=== PATIENT | female | born 1955 | race Hispanic/Latino ===

== ENCOUNTER 2018-04-25 17:17 | Emergency (ER) | payer SELFPAY ==
[2018-04-25] MEDS ORDERED: diphenhydrAMINE 12.5 MG/5 ML UDCUP ONE (17:52)
[2018-04-25] MEDS ORDERED: Prochlorperazine 10 MG/2 ML VIAL ONE (17:52)
[2018-04-25] MEDS ORDERED: diphenhydrAMINE 50 MG/ML VIAL ONE (17:53)
[2018-04-25 18:05] LABS: #Basophils 0.1 thou/uL (0.0-0.2); #Lymphocytes 1.1 thou/uL (1.20-3.40); #Monocytes 0.3 thou/uL (0.11-0.59); #Neutrophils 5.9 thou/uL (1.40-6.50); %Basophils 1.9 % (0.0-1.0); %Eosinophils 0.1 % (0.0-10.0); %Monocytes 3.9 % (0.0-10.0); Hemoglobin 12.3 g/dL (12.0-16.0); Mean Corpuscular HGB CONC 36.5 g/dL (32.0-36.0); Mean Platelet Volume 9.3 fL (7.4-10.4); Platelet Count 108 thou/uL (130-400); Red Blood Cell (RBC) Count 3.97 mill/uL (4.20-5.40); White Blood Cell (WBC) Count 7.4 thou/uL (4.8-10.8)
[2018-04-25 18:07] LABS: MDiff Complete? YES; Manual Diff?? YES; PLT Morphology Comment Appears Decreased
[2018-04-25 18:12] LABS: ALT (SGPT) 15 U/L (8-55); AST (SGOT) 14 U/L (5-34); Albumin 4.4 g/dL (3.4-4.8); Alkaline Phosphatase 58 U/L (40-150); Anion Gap 12 mmol/L (10-20); BUN (Urea Nitrogen) 21 mg/dL (9.8-20.1); Bilirubin, Total 0.4 mg/dL (0.2-1.2); Calc. Creatinine Clearance 0 mL/min (70-130); Carbon Dioxide 25 mmol/L (23-31); Chloride 106 mmol/L (98-107); Estimated GFR-MDRD 54; Globulin 2.6 g/dL (2.4-3.5); Glucose 212 mg/dL (80-115); Potassium 3.9 mmol/L (3.5-5.1); Sodium 139 mmol/L (136-145)
--- NOTE | 2018-04-25 18:20 | RAD ---
PORTABLE CHEST: 04/25/18 AP portable film at 1730 is compared with an 12/24/14 study. The heart is normal in size and the lungs are clear. At most, there may be a little basilar atelectas is. There is no vascular congestion or edema. No pleural effusions are seen. The trachea is midline. IMPRESSION: No acute thoracic finding. POS: HOME
--- NOTE | 2018-04-25 18:31 | CT ---
CT OF THE BRAIN WITHOUT CONTRAST: 04/25/18 There is low density area deep to the left Sylvian fissure that I do not see on a 2015 CT of MRI. A s troke is possible, but the age is indeterminate. There is no bleeding. No mass was seen. The ventricl es are normal in size for age and show no shift. No mass or edema was seen. IMPRESSION: Small low density area deep to the left Sylvian fissure. A stroke of indeterminate age is suspected, particularly since I do not see this on a prior scan. Findings discussed with Dr. Mathews at 1818 on 04/25/18. POS: HOME
== END 2018-04-25 19:10 | disposition short-term general hospital (02) ==
LOC: BURERS 17:17
DX: I63.9 Cerebral infarction, unspecified (principal); E11.9 Type 2 diabetes mellitus without complications; E03.9 Hypothyroidism, unspecified; E78.5 Hyperlipidemia, unspecified; I10 Essential (primary) hypertension; G51.0 Bell's palsy; Z79.899 Other long term (current) drug therapy
CPT/HCPCS: 70450; 71045; 80053; 83605; 84484; 85025; 93005; 94760; 96361; 96374; 96375; J0780; J1200

== ENCOUNTER 2020-01-27 11:20 | Emergency (ER) | payer SELFPAY ==
[2020-01-27] MEDS ORDERED: HYDROcodone/Acetaminophen 5/325 mg Tablet ONE (11:44)
[2020-01-27 11:59] LABS: Hemoglobin 13.3 g/dL (12.0-16.0); Mean Corpuscular HGB CONC 31.3 g/dL (32.0-36.0); Mean Corpuscular Hemoglobin 30.4 pg (27.0-31.0); Mean Platelet Volume 8.5 fL (7.4-10.4); Platelet Count 95 thou/uL (130-400); RBC Distribution Width 11.4 % (11.5-14.5); Red Blood Cell (RBC) Count 4.38 mill/uL (4.20-5.40); White Blood Cell (WBC) Count 5.9 thou/uL (4.8-10.8)
[2020-01-27 12:01] LABS: #Eosinphils 0.2 thou/uL (0.0-0.7); #Lymphocytes 1.5 thou/uL (1.20-3.40); #Monocytes 0.5 thou/uL (0.11-0.59); #Neutrophils 3.7 thou/uL (1.40-6.50); %Basophils 0.5 % (0.0-1.0); %Eosinophils 2.6 % (0.0-10.0); %Lymphocytes 25.4 % (21.0-51.0); %Monocytes 9.1 % (0.0-10.0); %Neutrophils 62.5 % (42.0-75.0)
[2020-01-27 12:02] LABS: INR-International Normal Ratio 0.9; Prothrombin Time 12.4 sec (12.0-14.7)
[2020-01-27 12:04] LABS: D-Dimer Test 0.32 *mcg/mL (0.27-0.43)
[2020-01-27 12:09] LABS: Anion Gap 12 mmol/L (10-20); BUN (Urea Nitrogen) 16 mg/dL (9.8-20.1); Calc. Creatinine Clearance 0 mL/min (70-130); Calcium 10.7 mg/dL (7.8-10.44); Carbon Dioxide 27 mmol/L (23-31); Chloride 103 mmol/L (98-107); Estimated GFR-MDRD 53; Glucose 204 mg/dL (80-115); Sodium 138 mmol/L (136-145)
[2020-01-27] MEDS ORDERED: Ibuprofen 200 MG TAB ONE (12:26)
--- NOTE | 2020-01-27 18:49 | RAD ---
RIGHT HIP TWO VIEWS: 01/27/20 No fracture, dislocation, or joint space narrowing was seen. The articular surfaces are smooth. There is a little bony spurring on the lateral aspect of the acetabulum. A few tiny cystic changes are see n in the upper femoral neck and are judged to be of no current significance. The adjacent pubic ring appears intact. IMPRESSION: No acute findings. POS: HOME
== END 2020-01-27 12:38 | disposition home or self-care (01) ==
LOC: BURERS 11:20
DX: M25.551 Pain in right hip (principal); E11.9 Type 2 diabetes mellitus without complications; E03.9 Hypothyroidism, unspecified; E78.5 Hyperlipidemia, unspecified; I10 Essential (primary) hypertension; Z79.899 Other long term (current) drug therapy; Z79.84 Long term (current) use of oral hypoglycemic drugs
CPT/HCPCS: 36415; 80048; 85025; 85379; 85610; 85730

== ENCOUNTER 2022-04-20 16:40 | Emergency (ER) | payer MEDICARE, SELFPAY ==
[~2022-04-20 16:40] MED LIST: Iopamidol 370 76% 100 ML VIAL ONE; Lidocaine 1% w/Epinephrine 1:100K 20 ML VIAL ONE
[2022-04-20 17:15] LABS: #Eosinphils 0.2 thou/uL (0.0-0.7); #Lymphocytes 2.8 thou/uL (1.20-3.40); #Monocytes 0.6 thou/uL (0.11-0.59); #Neutrophils 4.3 thou/uL (1.40-6.50); %Basophils 0.6 % (0.0-1.0); %Eosinophils 2.7 % (0.0-10.0); %Lymphocytes 35.4 % (21.0-51.0); %Monocytes 7.3 % (0.0-10.0); Hemoglobin 13.5 g/dL (12.0-16.0); Mean Corpuscular HGB CONC 34.8 g/dL (32.0-36.0); Mean Corpuscular Volume 91.8 fl (78.0-98.0); Mean Platelet Volume 10.2 fL (7.4-10.4); Platelet Count 114 10x3/uL (130-400); RBC Distribution Width 12.1 % (11.5-14.5); Red Blood Cell (RBC) Count 4.23 mill/uL (4.20-5.40); White Blood Cell (WBC) Count 7.9 10x3/uL (4.8-10.8)
[2022-04-20 17:17] LABS: MDiff Complete? YES
[2022-04-20 17:22] LABS: ALT (SGPT) 26 U/L (8-55); AST (SGOT) 17 U/L (5-34); Albumin 4.3 g/dL (3.4-4.8); Alkaline Phosphatase 117 U/L (40-110); Anion Gap 13 mmol/L (10-20); BUN (Urea Nitrogen) 20 mg/dL (9.8-20.1); Bilirubin, Total 0.5 mg/dL (0.2-1.2); Calc. Creatinine Clearance 0 mL/min (70-130); Calcium 10.6 mg/dL (7.8-10.44); Carbon Dioxide 26 mmol/L (23-31); Chloride 104 mmol/L (98-107); Estimated GFR 61; Globulin 2.5 g/dL (2.4-3.5); Glucose 106 mg/dL (80-115); Lipase 32 U/L (8-78); Magnesium 1.8 mg/dL (1.6-2.6); Potassium 3.7 mmol/L (3.5-5.1); Protein, Total 6.8 g/dL (5.8-8.1); Sodium 139 mmol/L (136-145)
[2022-04-20 17:23] LABS: CK (CPK) 27 U/L (29-168); CRP (Inflammatory) Less than 0.50 mg/dL (= or < 0.5)
[2022-04-20 17:35] LABS: Prothrombin Time 13.5 sec (12.0-14.7)
[2022-04-20 17:37] LABS: D-Dimer Test 0.38 *mcg/mL (0.27-0.43)
[2022-04-20 18:08] LABS: Bilirubin Negative (Negative); Blood, Urine Negative (Negative); Clarity Clear (Clear); Glucose, Urine (Dipstick) Negative (Negative); Ketone, Urine Negative (Negative); Leukocyte Small (Negative); Nitrite Negative (Negative); Protein, Urine (Dipstick) Negative (Neg-Trace); Specific Gravity, Urine 1.015 (1.005-1.030); Urobilinogen 0.2 mg/dL (Less than 2); pH, Urine 6.5 (5.0-9.0)
[2022-04-20 18:15] LABS: Bacteria/HPF 2+ HPF (None Seen); RBC/HPF 0-3 HPF (0-3); Squamous Epithelial 0-3 HPF (0-3)
[2022-04-20 18:16] LABS: Amphetamine Not Detected (NotDetected); Barbiturates Screen Not Detected (NotDetected); Benzodiazepine Screen Not Detected (NotDetected); Cocaine Metabolite Screen Not Detected (NotDetected); Medtox Control Line Valid? VALID (VALID); Methadone Not Detected (NotDetected); Methamphetamine Not Detected (NotDetected); Opiate Screen Not Detected (NotDetected); Oxycodone Screen Not Detected (NotDetected); Phencyclidine (PCP) Not Detected (NotDetected); THC/Cannabinoid Screen Not Detected (NotDetected); Tricyclic Screen Not Detected (NotDetected)
[2022-04-20] MEDS ORDERED: Ciprofloxacin 500 MG TAB ONE (19:42)
[2022-04-20] MEDS ORDERED: Acetaminophen 325 MG TAB ONE (19:43)
== END 2022-04-20 20:05 | disposition home or self-care (01) ==
LOC: BURERS 16:40
DX: N39.0 Urinary tract infection, site not specified (principal); E86.0 Dehydration; G93.40 Encephalopathy, unspecified; E03.9 Hypothyroidism, unspecified; E78.5 Hyperlipidemia, unspecified; I10 Essential (primary) hypertension; E11.9 Type 2 diabetes mellitus without complications; Z79.84 Long term (current) use of oral hypoglycemic drugs; Z79.899 Other long term (current) drug therapy
CPT/HCPCS: 70450; 70496; 70498; 71045; 80053; 80306; 81003; 81015; 82550; 83605; 83690; 83735; 83880; 84443; 84484; 85025; 85379; 85610; 86140; 93005; 96360; Q9967